=== PATIENT | male | born 1990 | race Caucasian/White ===

== ENCOUNTER 2016-12-28 11:36 | Emergency (ER) | payer MEDICAID ==
[~2016-12-28] VITALS: Wt 70.0 kg
[2016-12-28] MEDS ORDERED: LIDOCAINE 1% (MDV) 20 ML INJ INJ STA (12:15)
[2016-12-28] MEDS ORDERED: HYDROCODONE/APAP (10/325) TAB PO ONE (12:30)
[2016-12-28] MEDS ORDERED: DIPHTH/TET/ACEL PERTUSS (ADULT) 0.5 ML VIAL IM* ONE (12:30)
--- NOTE | 2016-12-28 12:54 | RADRPT ---
PROCEDURE: XR left Hand. CLINICAL INDICATION: Trauma and the second digit and laceration. TECHNIQUE: Three views of the left hand were obtained. COMPARISON: No prior studies are available for comparison. FINDINGS: There is no acute osseous or articular abnormality. No evidence for fracture. Bone mineral density is preserved. The articular surfaces are smooth without evidence of marginal erosions. No evidence of radiopaque foreign body. Small soft tissue lucency noted at the volar aspect of the second DIP danielle int. IMPRESSION: 1. No acute osseous abnormality or radiopaque foreign body. 2. Small soft tissue defect volar to the second DIP joint, likely correlating with laceration. RPTAT: PP .Vinnie Jara MD, MD Date Time Electronically viewed and signed by .Vinnie Jara MD, on 12/28/2016 12:54 .d/
[2016-12-28] MEDS ORDERED: HYDR-906 PO (13:24)
[2016-12-28] MEDS ORDERED: CEPH-443 PO (13:24)
[2016-12-28] MEDS ORDERED: IBUP-1542 PO (13:24)
--- NOTE | 2016-12-28 13:29 | ERD ---
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 Patient states pain is 8 out of 10 throbbing. Denies any numbness or tingling. Unsure last tetanus vaccination. Denies possibility retained foreign body. Has not taken any medication for pain. ROS All systems reviewed and are negative except as per history of present illness. Medications Home Meds Active Scripts Hydrocodone/Acetaminophen ([place] 5-325 Tablet) 1 Each Tablet, 1 TAB PO Q6H Y for PAIN, #20 TAB Prov:MARII WELLS PA-C 12/28/16 Cephalexin* (Keflex*) 500 Mg Capsule, 500 MG PO QID for 7 Days, CAP Prov:MARII WELLS PA-C 12/28/16 Ibuprofen* (Motrin*) 600 Mg Tab, 600 MG PO Q6H Y for PAIN AND OR ELEVATED TEMP, #30 TAB Prov:MARII WELLS PA-C 12/28/16 Reported Medications [None] No Conflict Check 05/19/11 Allergies Allergies: Uncoded Allergies: NONE (Allergy, Mild, 05/19/11) PMhx/Soc History of Surgery: No Anesthesia Reaction: No Hx Neurological Disorder: No Hx Respiratory Disorders: No Hx Cardiac Disorders: No Hx Psychiatric Problems: No Hx Miscellaneous Medical Probl: No Hx Alcohol Use: No Hx Substance Use: No Hx Tobacco Use: No FmHx Family History: No diabetes Physical Exam Vitals Vital Signs Date Time Temp Pulse Resp B/P Pulse Ox O2 Delivery O2 Flow Rate FiO2 12/28/16 11:42 98.7 76 20 132/81 99 Physical Exam General: well developed, well nourished, alert, nontoxic, no distress Head: normocephalic, atraumatic Neck: Supple, nontender, no lymphadenopathy, no midline tenderness Respiratory: Clear to auscaultation bilaterally, speaks in full sentences, no use of accesory muscles or labored breathing, no rales, ronchi, or wheezing Cardiovascular: RRR, No murmurs GI: soft, non tender, non distended, negative murphys sign, negative mcburneys point tenderness, no cva tenderness bilaterally, no rebound or guarding Back: no midline tenderness, no step offs or bony abnormalities, sensation to light touch in tact Extremities: Left second digit has a spiral laceration on the distal medial border approximately 2 cm in length, patient has good strength against resistance at each interphalangeal joint, capillary refill is less than 2 seconds, no bony abnormalities, sensation to light touch intact Results 24 hrs Current Medications Medications (Trade) Dose Ordered Sig/Ann Marie Route PRN Reason Start Time Stop Time Status Last Admin Dose Admin Diphtheria/ Tetanus/Acell Pertussis (Adacel) 0.5 ml ONCE ONCE IM* 12/28/16 12:30 12/28/16 12:31 DC 12/28/16 13:02 Acetaminophen/ Hydrocodone Bitart ([place] (10)) 1 tab ONCE ONCE PO 12/28/16 12:30 12/28/16 12:31 DC 12/28/16 12:54 Lidocaine (Xylocaine 1% (Mdv) 20 ml) 20 ml ONCE STAT INJ 12/28/16 12:15 12/28/16 12:18 DC Procedures/MDM 26-year-old male presents with finger laceration. He is neurovascularly intact. Vital signs are normal. X-ray was ordered and there is no evidence of acute fracture or dislocation or foreign body. The wound was irrigated with copious amounts of normal saline. Skin was prepped with Betadine and then 1% plain lidocaine was used to anesthetize the wound. A series of simple interrupted sutures using 4-0 Prolene were used to close the wound. Patient tolerated the procedure well and there were no complications. Patient was placed in a metal finger splint in his wound was dressed and bandaged. Low suspicion for tendon injury as his exam has full range of motion and strength against resistance at each joint in the finger. Recommended 2 day wound check in 7-10 days for removal of sutures. Patient was given prescription for Keflex and pain medication. Recommended this patient follow up with her primary care doctor within 48 hours or return to the emergency room for any worsening of symptoms. However this time I do believe there is suitable for outpatient management. I answered all their questions and they agreed with the plan and were discharged home. Departure Diagnosis: Primary Impression: Finger laceration Condition: Stable Patient Instructions: Suture Care, Laceration, Extrem (Suture, Staple, Or Tape) Additional Instructions: Llame al doctor MAANA y naveen sharon ÁLVARO PARA DENTRO DE 1-2 COFFMAN.Dgale a la secretaria que nosotros le instruimos hacer esta álvaro.Avise o llame si pulido condicin se empeora antes de la álvaro. Regresa aqui si peor o no mejor. Llame al doctor nombrado abajo (Referral Sources) MAANA y naveen sharon ÁLVARO PARA DENTRO DE SHARON SEMANA. Dgale a la secretaria que nosotros le instruimos hacer esta álvaro.Avise o llame si pulido condicin se empeora antes de la álvaro. MARII WELLS PA-C Dec 28, 2016 13:29
== END 2016-12-28 13:24 | disposition home or self-care (01) ==
LOC: FTE 11:36
DX: S61.211A Laceration without foreign body of left index finger without damage to nail, initial encounter (principal); W27.0XXA Contact with workbench tool, initial encounter; Y92.89 Other specified places as the place of occurrence of the external cause; Z23 Encounter for immunization
CPT/HCPCS: 12001; 73130; 90471; 90715; Z7502; Z7610

== ENCOUNTER 2017-01-05 19:47 | Emergency (ER) | payer MEDICAID ==
[~2017-01-05] VITALS: Ht 170.2 cm; Wt 71.0 kg
[~2017-01-05 19:47] MED LIST: CEPH-443 PO; HYDR-906 PO; IBUP-1542 PO
[2017-01-05 20:00] VITALS: Ht 170.2 cm; Wt 71.0 kg
--- NOTE | 2017-01-05 20:23 | ERD ---
ER Documentation Chief Complaint Date/Time DATE: 01/05/17 TIME: 20:21 Chief Complaint wound check left index finger HPI 26-year-old male presents here in emergency department for a wound check of the left index finger, had laceration wound which was sutured 8 days ago, one of the sutures got lose, no gaping of the wound noted, no pain, no discharge coming from the area. Patient does not have any discharge coming from the wound. Patient does not have any numbness or tingling. Patient denies any pain. Patient denies any fever or chills. ROS All systems reviewed and are negative except as per history of present illness. Medications Home Meds Active Scripts Hydrocodone/Acetaminophen ([place] 5-325 Tablet) 1 Each Tablet, 1 TAB PO Q6H Y for PAIN, #20 TAB Prov:MARII WELLS PA-C 12/28/16 Cephalexin* (Keflex*) 500 Mg Capsule, 500 MG PO QID for 7 Days, CAP Prov:MARII WELLS PA-C 12/28/16 Ibuprofen* (Motrin*) 600 Mg Tab, 600 MG PO Q6H Y for PAIN AND OR ELEVATED TEMP, #30 TAB Prov:MARII WELLS PA-C 12/28/16 Reported Medications [None] No Conflict Check 05/19/11 Allergies Allergies: Uncoded Allergies: NONE (Allergy, Mild, 05/19/11) PMhx/Soc Medical and Surgical Hx: pt denies Medical Hx, pt denies Surgical Hx History of Surgery: No Anesthesia Reaction: No Hx Neurological Disorder: No Hx Respiratory Disorders: No Hx Cardiac Disorders: No Hx Psychiatric Problems: No Hx Miscellaneous Medical Probl: No Hx Alcohol Use: No Hx Substance Use: No Hx Tobacco Use: No FmHx Family History: No coronary disease, No diabetes, No other Physical Exam Vitals Vital Signs Date Time Temp Pulse Resp B/P Pulse Ox O2 Delivery O2 Flow Rate FiO2 01/05/17 20:00 98.0 72 20 134/69 100 Physical Exam GENERAL: The child is well developed and nourished for age, interactive and vigorous appearing. No acute distress and nontoxic. HEENT: Atraumatic. Ears: Normal tympanic membrane, no erythema or bulging. No ear canal swelling. No ear discharge. Nose: normal nasal turbinates, no erythema or swelling. Normal nasal discharge. Throat: oropharynx clear. No tonsillar swelling or tonsillar exudates. No lymphadenopathy. LUNGS: Clear to auscultation. No accessory muscle use. No wheezing, no crackles. No signs or symptoms of respiratory distress. HEART: Regular rate and rhythm. No murmurs, clicks, rubs or gallops. ABDOMEN: Soft, nontender and nondistended. Bowel sounds positive. No rebound or guarding. No gross peritoneal signs. No Schwarz or McBurney point tenderness. No gross masses. BACK: No midline tenderness, no costovertebral tenderness. EXTREMITIES: There is no peripheral cyanosis or edema. No focal pain or notable trauma. Full range of motion. Good capillary refill. NEURO: The patient moves all 4 extremities with 5/5 strength. Cranial nerves are grossly intact. Normal mental status for age. SKIN: Noted wound on the left index finger healing well, [address] , one of the sutures got loose but there is no gaping of the wound noted, no discharge, no redness, nontender on palpation. There is no apparent rash, petechiae, erythema or swelling. Good skin turgor. Procedures/MDM Medical decision making: Patient is here for wound check, one of the sutures got loose, the wound is healing well, no gaping of the wound, no symptoms of any infection, resuturing not necessary at this time, patient was advised to return in 3 days for removal of the sutures. Patient was advised to return for any symptoms of infection of the wound. No symptoms of neurovascular compromise. No symptoms of dehiscence. No symptoms of necrosis. Patient was advised to follow-up with primary care doctor or here in emergency Department in 3 days for removal of the sutures. Departure Diagnosis: Primary Impression: Finger laceration Encounter type: subsequent encounter Qualified Code: S61.219D - Finger laceration, subsequent encounter Additional Impression: Encounter for wound re-check Condition: Stable Patient Instructions: Wound Care, Wound Check, Lac F/U (No Infection) Additional Instructions: suture removal in 3 days more, continue medications prescribed ANATOLY PARKER NP Jan 05, 2017 20:23
== END 2017-01-05 20:20 | disposition home or self-care (01) ==
LOC: E/R 19:47
DX: S61.219D Laceration without foreign body of unspecified finger without damage to nail, subsequent encounter (principal); X58.XXXD Exposure to other specified factors, subsequent encounter
CPT/HCPCS: 99281

== ENCOUNTER 2017-01-09 09:44 | Emergency (ER) | payer MEDICAID ==
[~2017-01-09] VITALS: Wt 70.9 kg
--- NOTE | 2017-01-09 10:39 | ERD ---
ER Documentation Chief Complaint Date/Time DATE: 01/09/17 TIME: 10:37 Chief Complaint PT HERE FOR SUTURE REMOVAL ON LEFT INDEX FINGER HPI Patient is a 26-year-old male who presents to the ED with suture removal of his left second digit. He states that he has been 12 days since his sutures were placed. Denies fever or chills. Denies drainage or bleeding. States that he is taking Keflex. No other complaints. ROS All systems reviewed and are negative except as per history of present illness. Medications Home Meds Active Scripts Hydrocodone/Acetaminophen ([place] 5-325 Tablet) 1 Each Tablet, 1 TAB PO Q6H Y for PAIN, #20 TAB Prov:MARII WELLS PA-C 12/28/16 Cephalexin* (Keflex*) 500 Mg Capsule, 500 MG PO QID for 7 Days, CAP Prov:MARII WELLS PA-C 12/28/16 Ibuprofen* (Motrin*) 600 Mg Tab, 600 MG PO Q6H Y for PAIN AND OR ELEVATED TEMP, #30 TAB Prov:MARII WELLS PA-C 12/28/16 Reported Medications [None] No Conflict Check 05/19/11 Allergies Allergies: Uncoded Allergies: NONE (Allergy, Mild, 05/19/11) PMhx/Soc History of Surgery: No Anesthesia Reaction: No Hx Neurological Disorder: No Hx Respiratory Disorders: No Hx Cardiac Disorders: No Hx Psychiatric Problems: No Hx Miscellaneous Medical Probl: No Hx Alcohol Use: No Hx Substance Use: No Hx Tobacco Use: No Physical Exam Vitals Vital Signs Date Time Temp Pulse Resp B/P Pulse Ox O2 Delivery O2 Flow Rate FiO2 01/09/17 09:47 97.6 64 18 130/66 98 Physical Exam GENERAL: Well-developed, well-nourished male. Appears in no acute distress. LUNG: Clear to auscultation bilaterally. No rhonchi, wheezing, rales or coarse breath sounds. HEART: Regular rate and rhythm. No murmurs, rubs or gallops. Extremities: Equal pulses bilaterally. No peripheral clubbing, cyanosis or edema. No unilateral leg swelling. 5 sutures on left second digit. Healing wound with no pus, drainage, erythema, swelling or fluctuance. No bleeding. NEUROLOGIC: Alert and oriented. Moving all four extremities. 5/5 strength in all extremities. Normal speech. Steady gait. SKIN: Normal color. Warm and dry. No rashes or lesions. Capillary refill < 2 seconds Procedures/MDM ER COURSE: I kept the patient and/or family informed of laboratory and diagnostic imaging results throughout the emergency room course. Suture Removal by me: 5 sutures Sutures removed with tweezers and scissors without incident. Wound shows no evidence of infection, foreign body, neurologic injury, vascular injury, open joint or tendon laceration. Patient to follow up PRN. MEDICAL DECISION MAKING: This is a 26 year old male who presents with suture removal. Vital signs were reviewed. Patient is afebrile. Patient is not hypoxic. Low suspicion for necrotizing fasciitis, SJS, toxic epidermal necrolysis, Kawasaki, erythema multiforme, gangrene, scarlet fever, meningococcemia, sepsis, anaphylaxis, sepsis, deep space infection, or foreign body. DISCHARGE: At this time, patient is stable for discharge and outpatient management with no new complaints during the ER course. Patient was sent home with instructions to continue using bacitracin.. Patient will be discharged home with instructions to recheck for new or worsening symptoms such as fever, nausea, weakness, LOC and to follow up with primary care in the next 1-2 days. Patient was advised to return to the ER for any new or worsening symptoms. Plan was discussed and patient and/or family understands and agrees. Home instructions were given. Departure Diagnosis: Primary Impression: Encounter for removal of sutures Condition: Stable Patient Instructions: Suture Removal, No Complication Referrals: NO PRIMARY,CARE PHYSICIAN (PCP) Additional Instructions: Llame al doctor TIAGO y naveen sharon ÁLVARO PARA DENTRO DE 1-2 COFFMAN.Dgale a la secretaria que nosotros le instruimos hacer esta álvaro.Avise o llame si pulido condicin se empeora antes de la álvaro. Regresa aqui si peor o no mejor. CASSIE SHELTON PA-C Jan 09, 2017 10:39
== END 2017-01-09 11:07 | disposition home or self-care (01) ==
LOC: FTE 09:44
DX: Z48.02 Encounter for removal of sutures (principal)
CPT/HCPCS: 99281